=== PATIENT | male | born 1960 ===

== ENCOUNTER 2019-07-27 08:41 | Inpatient (IN) | payer BC ==
[~2019-07-27] VITALS: Ht 177.8 cm; Wt 92.0 kg
[2019-08-28] VITALS (11 sets, daily range): BP systolic 109–134; BP diastolic 57–88; PULSE 70–88; TEMP 97.7–98.2
[2019-08-28] MEDS ORDERED: SYNTHROID 0.0.025 MG PO (09:30)
[2019-08-28] MEDS ORDERED: PRAVACHOL80 MG PO (09:30)
[2019-08-28 09:37] LABS: BASO # 0.1 (0.0-0.2); BASO % 0.9 % (0.0-2.0); EOS # 0.2 (0.0-0.7); EOS % 3.4 % (0-4.0); GRAN % 56.6 % (42.2-75.2); HEMATOCRIT 45.6 % (42.0-52.0); LYMPH # 2.1 (1.2-3.4); LYMPH % 30.3 % (20.0-51.0); MEAN CELL VOLUME 98 fl (80.0-100.0); MEAN CORPUSCULAR HEMOGLOBIN 32 pg (27.0-31.0); MEAN CORPUSCULAR HGB CONC 33 g/dl (33.0-37.0); MEAN PLATELET VOLUME 9.5 fl (7.4-10.4); MONO # 0.6 (0.1-0.6); MONO % 8.5 % (1.7-9.3); PLATELET COUNT 306 K/mm3 (130-400); RED BLOOD COUNT 4.66 M/mm3 (4.20-5.60); REDCELL DISTRIBUTION WIDTH-CV 13.2 % (11.5-14.5)
--- NOTE | 2019-08-28 09:43 | NUR ---
TO RM AT 0857- CALL LIGHT IN REACH AT BEDSIDE.
[2019-08-28 09:46] LABS: ALBUMIN 4.1 gm/dL (3.5-5.0); BILIRUBIN,TOTAL 0.6 mg/dL (0.0-1.0); CALCIUM 8.9 mg/dL (8.4-10.2); CREATININE, serum 1.03 (0.66-1.25); POTASSIUM 4.4 mmol/L (3.4-5.0); TOTAL PROTEIN 7.3 gm/dL (6.4-8.2)
--- NOTE | 2019-08-28 18:00 | NUR ---
Patient has been doing well this afternoon. He is tolerating clear liquids well. Denies nausesa. Has some mild pain and discomfort to lower groin. at bedside. Explained plan of care for tonight and POD #1. Patient verbalized understanding. IVFs infusing as ordered. Explained no straws or carbonation and clear liquids diet. No other changes at this time. Call light within reach.
--- NOTE | 2019-08-28 20:00 | NUR ---
PATIENT IN BED, IS ALERT AND ORIENTED X4. HAS IVF INFUSING TO LEFT FOREARM WITHOUT REDNESS OR SWELLING. LEE CATHETER TO BSD WITH DARK YELLOW URINE. HAS LAP SITES X5, GLUED AND DRY. RIO TO BULB SUCTION, MINIMAL DRAINAGE NOTED. BOWEL SOUNDS ACTIVE. RATES PAIN 2/10 TO ABDOMEN.
--- NOTE | 2019-08-28 22:36 | NUR ---
Pt ambulated in hallway about 200ft. Tolerated well. Denies pain at this time. Denies other needs at this time. Call light within reach, will continue to monitor
[2019-08-29 04:00] VITALS: BP 120/67; PULSE 70; TEMP 98.4
[2019-08-29 06:04] LABS: BASO % 0.1 % (0.0-2.0); GRAN # 10.1 (1.4-6.5); GRAN % 76.2 % (42.2-75.2); HEMATOCRIT 40.1 % (42.0-52.0); HEMOGLOBIN 13.2 g/dl (13.5-18.0); LYMPH % 15.1 % (20.0-51.0); MEAN CELL VOLUME 97 fl (80.0-100.0); MEAN CORPUSCULAR HEMOGLOBIN 32 pg (27.0-31.0); MEAN CORPUSCULAR HGB CONC 33 g/dl (33.0-37.0); MEAN PLATELET VOLUME 9.8 fl (7.4-10.4); MONO # 1.1 (0.1-0.6); MONO % 8.2 % (1.7-9.3); PLATELET COUNT 284 K/mm3 (130-400); RED BLOOD COUNT 4.12 M/mm3 (4.20-5.60); REDCELL DISTRIBUTION WIDTH-CV 13.2 % (11.5-14.5)
[2019-08-29 06:17] LABS: CALCIUM 8.6 mg/dL (8.4-10.2); CREATININE, serum 0.89 (0.66-1.25); POTASSIUM 4.1 mmol/L (3.4-5.0)
--- NOTE | 2019-08-29 08:00 | NUR ---
PATIENT RESTING IN BED THIS MORNING WITH HIS PRESENT AT THE BEDSIDE. PATIENT IS A&OX4. VSS. BOWEL SOUNDS ACTIVE ALL FOUR QUADRANTS. PATIENT TOLERATING DIET WITHOUT ANY NAUSEA OR VOMITING. ABDOMINAL LAP SITES BUILDING RIGGER WITH EDGES WELL APPROXIMATED. LEFT-SIDED ABDOMINAL RIO DRAIN TO BULB SUCTION WITH SMALL AMOUNTS OF BLOODY DRAINAGE PRESENT IN RIO BULB. INDWELLING LEE CATHETER DRAINING BLOOD-TINGED URINE WITH A FEW SMLL CLOTS PRESENT IN LEE BAG. CALL LIGHT WITHIN REACH. PATIENT DENIES ANY OTHER NEEDS AT THIS TIME.
[2019-08-29 08:01] VITALS: BP 123/70; PULSE 63; TEMP 97.6
--- NOTE | 2019-08-29 10:11 | NUR ---
RAMIREZ met with the patient and his , Josseline (ph#[phone]), to discuss discharge plan. The patient lives in [place] with his . He reports independence with ADLs and does not have any DME. The patient's PCP is Dr. Ant Donahue and he receives his medications at [facility]. He reports no difficulties obtaining his meds. The patient does not have advanced directives completed, but he was interested in obtaining a form for DPOA-HC. RAMIREZ provided. The patient plans to return home with his upon discharge. No additional needs at this time.
--- NOTE | 2019-08-29 11:16 | NUR ---
Initial visit; Patient and his thanked [employer] S[employer] for stopping in and offering spiritual care.
[2019-08-29 12:42] VITALS: BP 131/72; PULSE 61; TEMP 97.5
--- NOTE | 2019-08-29 15:37 | NUR ---
THIS NURSE SPOKE WITH DR. RED AND NOTIFIED HIM THAT THERE WAS AN ADDITIONAL 10 MLS EMPTIES FROM THE PATIENTS RIO DRAIN. DISCONTINUE RIO DRAIN TODAY TORB TO THIS NURSE.
--- NOTE | 2019-08-29 15:50 | NUR ---
REPORT GIVEN TO POPEYE ROBIN.
[2019-08-29 16:23] VITALS: BP 119/71; PULSE 64; TEMP 97.9
--- NOTE | 2019-08-29 16:38 | NUR ---
RIO drain LLQ removed. 1 suture removed. RIO drain pulled and gauze and foam tape applied. Patient tolerated well. Nurse informed patient to keep dressing on for 24 hours and if CDI and to monitor for bleeding. Patient verbalized an understanding. No further needs expressed from patient. Call light within reach
--- NOTE | 2019-08-29 17:57 | NUR ---
Patient sitting up in bed, at the bedside. A&Ox4, denies pain and discomfort. RIO drain site LLQ CDI, pressure dressing intact. VSS. IV CDI. No further needs expressed from patient. Call light within reach
[2019-08-29 20:00] VITALS: BP 115/67; PULSE 67; TEMP 97.6
--- NOTE | 2019-08-29 20:00 | NUR ---
Patient in bed, spouse at bedside. Is alert and oriented x4. Denies pain, receives scheduled pain meds. Has dry drsg to left abdomen, old RIO site. Other incisions are dry. Reports passing gas. Perry to BSD with yellow urine noted.
[2019-08-29 23:47] VITALS: BP 110/64; PULSE 69; TEMP 98
[2019-08-30 04:00] VITALS: BP 113/62; PULSE 60; TEMP 97.9
--- NOTE | 2019-08-30 05:00 | NUR ---
REPORTS RESTING WELL THIS SHIFT. CATHETER DRAINING WELL.
--- NOTE | 2019-08-30 07:23 | NUR ---
Report from Soledad NYE.
[2019-08-30 07:48] VITALS: BP 104/57; PULSE 64; TEMP 97.9
--- NOTE | 2019-08-30 09:04 | NUR ---
PT UP TO BR INDEPENDENT, NAYELI PAGAN IN TO DISCHARGE PATEINT ORDERS RECIEVED PT TO FOLLOW UP SAT SEP 01.
--- NOTE | 2019-08-30 09:54 | NUR ---
DISCHARGE INSTRUCTIONS PROVIDED AND LEG BAG TEACHING COMPLETE. PT AND VERBALIZED UNDERSTANDING. PT CHANGED TO STREET CLOTHES AND AMBULATED IN HALLS WITH .
== END 2019-08-30 10:00 | disposition home or self-care (01) | DRG 708 ==
LOC: INPTSU 08-28 08:51 → SURG 08-28 08:51
PROVIDERS: ADMIT Urology
PROC: 07TJ4ZZ Resection of Left Inguinal Lymphatic, Percutaneous Endoscopic Approach (ICD-10-PCS; 2019-08-28)
PROC: 07TH4ZZ Resection of Right Inguinal Lymphatic, Percutaneous Endoscopic Approach (ICD-10-PCS; 2019-08-28)
PROC: 8E0W4CZ Robotic Assisted Procedure of Trunk Region, Percutaneous Endoscopic Approach (ICD-10-PCS; 2019-08-28)
PROC: 0VT04ZZ Resection of Prostate, Percutaneous Endoscopic Approach (ICD-10-PCS; principal; 2019-08-28 10:45)
DX: C61 Malignant neoplasm of prostate (principal); E78.5 Hyperlipidemia, unspecified; E03.9 Hypothyroidism, unspecified; F17.210 Nicotine dependence, cigarettes, uncomplicated
CPT/HCPCS: A9284; J0330; J0690; J1100; J1885; J2405; J2704; J3010; J7120